=== PATIENT | male | born 1975 | race Two or more races ===

== ENCOUNTER 2020-01-29 16:27 | Emergency (ER) | payer OTHER ==
[~2020-01-29] VITALS: Ht 160 cm; Wt 88.0 kg
[2020-01-29 16:35] VITALS: BP 116/79
--- NOTE | 2020-01-29 16:46 | NUR ---
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
[2020-01-29] MEDS ORDERED: SUMATRIPTAN 25 MG TABLET ONE (18:01)
== END 2020-01-29 17:34 | disposition home or self-care (01) ==
LOC: ED 16:44
DX: R91.8 Other nonspecific abnormal finding of lung field (principal)
CPT/HCPCS: 71045; 99283